=== PATIENT | female | born 1960 | race Caucasian/White ===

== ENCOUNTER → 2024-01-14 08:36 | Outpatient (REF) | payer MEDICAID, SELFPAY ==
[2024-01-14 11:05] LABS: Glycohemoglobin (HgbA1c) 8.7 % (4.0-5.6)
[2024-01-14 12:36] LABS: Blood Urea Nitrogen 22 mg/dl (7-17); Calcium 9.7 mg/dl (8.4-10.2); Carbon Dioxide 28 mmol/L (22-30); Chloride 104 mmol/L (98-107); Glucose 142 mg/dl (70-99); HDL Cholesterol 55 mg/dl; LDL Cholesterol, Calculated 69 mg/dl; Potassium 4.2 mmol/L (3.5-5.1); Sodium 141 mmol/L (135-145); Total Cholesterol 148 mg/dl (50-199); Triglyceride 120 mg/dl (10-149); Very Low Density Lipoprotein 24 mg/dl (0-30); eGFR > 60.00
[2024-01-14 12:37] LABS: Free T4 1.52 ng/dl (0.78-2.19); TSH 1.82 uIU/ml (0.47-4.68)
[2024-01-14 13:11] LABS: Microalbumin, Random Urine 0.8 mg/dl (0.6-1.7); Microalbumin/creatinine Ratio 5.4 mg/g
[2024-01-15 18:56] LABS: Hepatitis C Antibody Negative (Negative)
== END ==
LOC: REG 08:36
PROVIDERS: ATTENDING PHYSICIAN Internal Medicine
DX: E03.8 Other specified hypothyroidism (principal); Z11.59 Encounter for screening for other viral diseases; E08.00 Diabetes mellitus due to underlying condition with hyperosmolarity without nonketotic hyperglycemic-hyperosmolar coma (NKHHC)
CPT/HCPCS: 36415; 80048; 80061; 82043; 82570; 83036; 84439; 84443; 86803

== ENCOUNTER 2024-03-08 00:18 | Emergency (ER) | payer MEDICAID, SELFPAY ==
[2024-03-08 00:20] VITALS: BP 172/114
[2024-03-08 00:49] VITALS: BMI 20.8
[2024-03-08 00:51] VITALS: BP 168/87
[2024-03-08 01:03] LABS: Glucose - Point of Care 174 mg/dl (70-99)
--- NOTE | 2024-03-08 01:21 | ED.GENMED ---
History of Present Illness
General
Chief Complaint: Dizziness
Source: patient and family (Son)
Exam Limitations: other (Language barrier, Son is translating)
Time Seen by Provider: 03/08/24 01:06
History of Present Illness
History of Present Illness:
This is a 63 year old female that comes in with c/o dizziness. Son states that the patient is leaving tomorrow to go back to [place]. States that she was very anxious and has been packing. States that she has been up and down on her knee's. State
that she was upset as she doesn't want to leave her grandchildren. States that they had a Birthday republican for one of the Grandchildren and she eat food that she is not suppose to eat. Sates that when she went to lay down to sleep she felt light
headed to they felt she needed to be checked. States that she is feeling better. Denies any fever, chills, chest pain, SOB, abd pain, nausea, vomiting, diarrhea, headache, urinary burning.
Past History
Past History
ED Past Medical History: HTN, Hypercholesterolemia, NIDDM and Hypothyroidism
ED Past Surgical History: None
Social History
Tobacco: Non-smoker
Alcohol: None
Personal:
Living: with family
Review of Systems
Review of Systems
All Other Systems: ROS reviewed and negative except as documented in HPI and ROS
Constitutional: Reports no symptoms; Denies fever or chills
EENT: Reports no symptoms
Respiratory: Reports no symptoms; Denies cough or trouble breathing
Cardiac: Reports no symptoms; Denies chest pain
ABD/GI: Reports no symptoms; Denies abdominal pain, nausea, vomiting or diarrhea
: Reports no symptoms; Denies dysuria, frequency or urgency
Musculoskeletal: Reports no symptoms
Skin: Reports no symptoms
Neurological: Reports other (Lightheaded); Denies headache
Psychiatric: Reports no symptoms
Phy Exam
General Physical Exam
General Presentation: well appearing and no apparent distress
General age: appears stated age
General Skin: warm and dry
General Habitus: normal
General Mental: alert
General Hydration: appears well hydrated
ENT Exam
ENT Exam: TM's normal, pharynx normal and neck supple
Eye Exam
Eye Exam: EOMI
Cardiovascular Exam
Cardiovascular Exam: regular rate/rhythm, no edema, no murmur and normal peripheral pulses
Pulmonary Exam
Pulmonary Exam: lungs clear, no respiratory distress, no rales, chest non tender, no crackles, no rhonchi, no wheezing and no cough
Gastrointestinal Exam
Gastrointestinal Exam: normal bowel sounds, non tender, soft, no organomegaly, no pulsatile mass and non distended
Musculoskeletal Exam
Musculoskeletal Exam: full ROM and no edema
Skin Exam
Skin Exam: normal color, warm/dry, no rash and no petechia
Psychiatric Exam
Psychiatric Exam: normal mood/affect
Course
Orders/Labs/Results
Orders:
Orders
03/08/24 01:21
0.9% Sodium Chloride 1000 ml [Nss] 1,000 ml IV BOLUS
03/08/24 01:24
Electrocardiogram (*1) Urgent
Reason for Study: Vertigo / Dizzy
EKG- Treatment ONCE
03/08/24 01:29
Complete Blood Count/With Diff Urgent
Comprehensive Metabolic Panel Urgent
Abnormal Lab Results
03/08/24 03/08/24
00:58 01:29
WBC 12.0 H 10^3/uL
(4.8-10.8)
MPV 11.4 H fL
(7.4-10.4)
Absolute Neuts (auto) 7.6 H 10^3/uL
(1.4-6.5)
Absolute Monos (auto) 0.8 H 10^3/uL
(0.1-0.6)
Chloride 108 H mmol/L
(98-107)
BUN 18 H mg/dl
(7-17)
Glucose 184 H mg/dl
(70-99)
AST 47 H U/L
(14-36)
ALT 72 H U/L
(0-35)
POC Glucose 174 H mg/dl
(70-99)
03/08/24 01:29
03/08/24 01:29
Leukocytosis, Glucose nonfasting, AST/ALT elevation.
Vital Signs
Initial and Last Documented VS:
Initial Vital Signs
Temp Pulse Resp BP Pulse Ox
98.1 F 98 22 172/114 98
03/08/24 00:20 03/08/24 00:20 03/08/24 00:20 03/08/24 00:20 03/08/24 00:20
Last Documented Vital Signs
Temp Pulse Resp BP Pulse Ox
98.1 F 89 22 168/87 98
03/08/24 00:20 03/08/24 00:52 03/08/24 00:20 03/08/24 00:51 03/08/24 00:20
MDM/Problems Addressed
Differential Diagnosis Includes:
Anxiety,
MDM/Problems Addressed:
This is a 63 year old female that comes in with c/o lightheadedness. Son states that she is traveling tomorrow and going back to [place]. States that she has been packing and been up and down on her knee's. States that she was upset about leaving her
Grandchildren and she eat a lot of food today that she is not to be eating. State that she is feeling better at this time but they felt she better get checked
Will check labs, ECG and given IV fluids.
Back into see patient and son. Explained that her WBC are very slightly elevated and that she had very slight Dehydration. Explained that her liver enzymes are slightly elevated. This can go up with medication and since patient is on Statins this
should be monitored by the PCP. Patient States that she is ready to go home. Will discharge home.
Chronic conditions affecting care: DM
Acute Exacerbation and/or Progression of Chronic Illness:
NA
*Pulse Oximetry
Patient hypoxic: no
*EKG
Interpreted by ED Provider?: Yes
Heart Rate: 93
Rate: normal
Rhythm: sinus
[place]: normal axis
Interval: normal interval
QRS Pattern: normal QRS
Ischemia: no ischemia
*Lab Manager Interpretation
Rate: normal
Heart Rate: 89
*Critical Care Note
Total Time (30-74mins, 75-104mins- exclusive of procedures): Not Applicable
ED Attending Note
-
Portions of this chart may have been created with voice recognition software.� Occasional wrong word or��sound alike� substitutions may have occurred due to the inherent limitations of voice recognition software.
Discharge Plan
Departure
Patient Disposition: Home (Routine Discharge)
Date of Disposition: 03/08/24
Time of Disposition: 02:10
Patient with high blood pressure during this ER visit?: Yes
Condition: Good
Covid-19: Not Applicable
Discharge Problem:
Dizziness
Instructions: Dizziness, BLOOD PRESSURE
Referrals:
UNKNOWN - PT NOT,INTERVIEWE [Family Provider] -
Activity Restrictions/Additional Instructions:
As discussed, your blood work shows that your WBC are very slightly elevated. This can go up with stress. You Liver enzymes are also mildly elevated. This will need to be monitored by your family doctor as you are taking a STATIN. Please increase
your water intake to 8-8oz glasses daily. Follow up with the family doctor. Return with any concerns.
Interventions
Interventions:
*Risk Screen - Suicide Last Done: 03/08/24 00:52
*General Assessment Last Done: 03/08/24 00:52
*Neglect/Abuse Screening Last Done: 03/08/24 00:52
ED- Fall Risk Assessment Last Done: 03/08/24 00:52
*ED COVID-19 Vaccine History Last Done: 03/08/24 00:52
ED- Neurological Assessment Last Done: 03/08/24 00:53
ED Swallowing Screen Last Done: 03/08/24 00:56
Discharge Date and Time
Print Language: CZECH
[2024-03-08] MEDS: NSS 1000 IV (01:33)
[2024-03-08 01:35] LABS: % Basophils 0.9 % (0-2); % Eosinophils 1.8 % (0-6); % Immature Granulocytes 0.3 % (0-0.5); % Lymphocytes 26.4 % (20.5-51.1); % Monocytes 6.7 % (1.7-9.3); % Neutrophils 63.9 % (42.2-75.2); Absolute Basophils 0.1 10^3/uL (0-0.2); Absolute Eosinophils 0.2 10^3/uL (0-0.7); Absolute Lymphocytes 3.2 10^3/uL (1.2-3.4); Absolute Monocytes 0.8 10^3/uL (0.1-0.6); Absolute Neutrophils 7.6 10^3/uL (1.4-6.5); Hematocrit 41.3 % (37.0-47.0); Hemoglobin 14.1 g/dL (12.0-16.0); Mean Corp Hgb Conc. 34.1 g/dL (33.0-37.0); Mean Corpuscular Hgb 30.1 pg (27.0-31.0); Mean Corpuscular Volume 88.1 fL (81.0-99.0); Mean Platelet Volume 11.4 fL (7.4-10.4); Nucleated Red Blood Cells % 0 %; Platelet Count 325 10^3/uL (130-400); Red Blood Cell Count 4.69 10^6/uL (4.20-5.40); Red Cell Dist. Width 13.8 % (11.5-14.5)
[2024-03-08 01:51] LABS: ALT (SGPT) 72 U/L (0-35); AST (SGOT) 47 U/L (14-36); Albumin 4.5 g/dl (3.5-5.0); Alkaline Phosphatase 114 U/L (38-126); Blood Urea Nitrogen 18 mg/dl (7-17); Calcium 9.7 mg/dl (8.4-10.2); Carbon Dioxide 25 mmol/L (22-30); Chloride 108 mmol/L (98-107); Estimated Creatinine Clearance 85 ml/min; Glucose 184 mg/dl (70-99); Potassium 3.7 mmol/L (3.5-5.1); Sodium 144 mmol/L (135-145); Total Bilirubin 0.5 mg/dl (0.2-1.3); Total Protein 8.1 g/dl (6.3-8.2); eGFR > 60.00
[2024-03-08 02:00] VITALS: BP 142/71
== END 2024-03-08 02:26 | disposition home or self-care (01) ==
LOC: EMR 00:18
PROVIDERS: Clinical Nurse Specialist Family Health; EMERGENCY PHYSICIAN Student in an Organized Health Care Education/Training Program
DX: R42 Dizziness and giddiness (principal); I10 Essential (primary) hypertension; E78.00 Pure hypercholesterolemia, unspecified; E11.9 Type 2 diabetes mellitus without complications; E03.9 Hypothyroidism, unspecified
CPT/HCPCS: 99283; 96360; 80053; 82962; 85025; 93005